=== PATIENT | male | born 1990 | race Asian ===

== ENCOUNTER 2017-02-15 00:52 | Emergency (ER) | payer MEDICAID ==
[~2017-02-15] VITALS: Ht 185.4 cm; Wt 75.0 kg
[2017-02-15 00:56] VITALS: BP 114/71
--- NOTE | 2017-02-15 02:09 | NUR ---
AMBULATED TO ER BED 8
--- NOTE | 2017-02-15 02:30 | NUR ---
Patient being evaluated by physician at bedside.
--- NOTE | 2017-02-15 03:00 | NUR ---
26Y/M PT. PRESENTS TO ED WITH C/O FEVER. PT. STATES FEVER, DIZZINESS, BODYACHES, STARTED TODAY AT 1400HOURS. AAO X4, AMBULATORY WITH STEADY GAIT. RESPIRATIONS ROOM AIR, EVEN AND UNLABORED. SKIN WARM AND DRY. NO C/O PAIN AT THIS TIME. VSS, ER MD MADE AWARE OF PT. STATUS.
[2017-02-15 03:17] VITALS: BP 114/71
--- NOTE | 2017-02-15 03:17 | NUR ---
Patient discharged with v/s stable. Written and verbal after care instructions given and explained. Patient verbalized understanding. Ambulatory with steady gait. All questions addressed prior to discharge. Advised to follow up with PMD.
== END 2017-02-15 03:17 | disposition home or self-care (01) ==
LOC: MED 00:52
DX: B34.9 Viral infection, unspecified (principal)
CPT/HCPCS: 99282